=== PATIENT | male | born 2000 | race Caucasian/White ===

== ENCOUNTER 2025-05-03 08:31 | Outpatient (CLI) | payer OTHER | END 2025-05-03 08:32 | disposition home or self-care (01) | LOC: CSHSLEEP 08:31 | PROVIDERS: ATTEND Internal Medicine | DX: G47.33 Obstructive sleep apnea (adult) (pediatric) (principal); R06.83 Snoring; E66.9 Obesity, unspecified; Z68.34 Body mass index [BMI] 34.0-34.9, adult | CPT/HCPCS: 95800 ==

== ENCOUNTER 2025-05-21 13:41 | Outpatient (CLI) | payer OTHER | END 2025-05-21 13:42 | disposition home or self-care (01) | LOC: CSHULT 13:41 | PROVIDERS: ATTEND Physician Assistant | DX: N45.1 Epididymitis (principal); N50.9 Disorder of male genital organs, unspecified | CPT/HCPCS: 76870 ==